=== PATIENT | male | born 1975 | race African-American/Black ===

== ENCOUNTER 2024-09-16 14:23 | Emergency (ER) | payer OTHER ==
--- NOTE | 2024-09-16 15:34 | RAD REPORT ---
EXAMINATION: XR RIGHT SHOUDLER CLINICAL INDICATION: Male, 49 years old. R shoulder inj RIGHT TECHNIQUE: Multiple views of the right shoulder were obtained. COMPARISON: No prior exam. FINDINGS: AC joint mild degenerative changes are present. There are 2 screws in the glenoid. Mild gle nohumeral arthritic changes. There is no fracture or dislocation.
--- NOTE | 2024-09-16 15:44 | EDPHYS ---
Physician Documentation [facility] Name: River Ball Jr Age: 49 yrs Sex: Male : 1975 Arrival Date: 09/16/2024 Time: 14:23 Bed DX3 Private MD: ED Physician Krystian Beebe HPI: 09/16 15:41 This 49 yrs old Black Male presents to ER via Ambulatory with complaints of Shoulder ec2 Pain - right. 15:41 Patient arrives today for right shoulder pain. Patient complaining of right shoulder ec2 pain after waking up several days ago. No falls injuries or trauma. Denies any neurodeficits to the area.. Historical: - Allergies: 15:01 No Known Allergies; iw - PMHx: 15:01 None; iw ROS: 15:41 Constitutional: as per hpi ec2 Exam: 15:41 Constitutional: GEN: NAD Head: atraumatic Eyes: EOMI Ears: External ears are ec2 normal. CV: regular rate LUNGS: no respiratory distress ABD: non-distended SKIN: no evidence of rashes MSK: Right shoulder with no evidence of trauma, good range of motion however pain elicited with range of motion, intact distal neurovascular status. Vital Signs: 15:00 BP 123 / 89; Pulse 53; Resp 16; Temp 97.9; Pulse Ox 98% on R/A; Weight 58.97 kg; Height iw 5 ft. 5 in. ; Pain 10/10; 15:00 Body Mass Index 21.63 (58.97 kg, 165.1 cm) iw 15:00 Pain Scale: Adult iw MDM: 15:01 Medical Screening Exam initiated ec2 15:42 Data reviewed: vital signs, nurses notes. ED course: Patient arrives today for right ec2 shoulder pain. Examination is revealing for MSK examination. Will obtain x-ray shows arthritis, will place patient in sling, outpatient pain medications have patient follow-up with repeated surgery. Patient discharged home. Turn precautions given.. 09/16 14:25 Order name: Shoulder Right (2 View) XRAY; Complete Time: 15:41 ec2 09/16 15:44 Order name: Sling; Complete Time: 16:51 ec2 Administered Medications: 17:07 Drug: Ketorolac IM 30 mg IM once Route: IM; Site: left deltoid; hb 17:07 Drug: Acetaminophen PO 1000 mg PO once Route: PO; hb 17:07 Drug: Methocarbamol PO 500 mg PO once Route: PO; hb Disposition Summary: 09/16/24 15:44 Discharge Ordered Notes: Location: Home ec2 Condition: Stable ec2 Diagnosis - Shoulder Arthritis ec2 Followup: ec2 - With: Private Physician - When: - Reason: Recheck today's complaints, Re-evaluation by your physician Discharge Instructions: - Discharge Summary Sheet ec2 - Arthritis, [id number] ec2 Forms: - Medication Reconciliation Form ec2 - Antibiotic Education ec2 - Prescription Opioid Use ec2 - Patient Portal Instructions ec2 - Leadership Thank You Letter ec2 Prescriptions: - methocarbamol 500 mg Oral tablet - take 1 tablet ORAL route 4 times per day; 20 tablet; Refills: 0, Product ec2 Selection Permitted Signatures: Dispatcher [employer] Ida Gómez RN RN Yazmin Jaquez RN RN Krystian Beebe MD MD ec2
--- NOTE | 2024-09-16 15:44 | ER ---
Nurse's Notes [facility] Name: River Ball Jr Age: 49 yrs Sex: Male : 1975 Arrival Date: 09/16/2024 Time: 14:23 Bed DX3 Private MD: Diagnosis: Shoulder Arthritis Presentation: 09/16 15:00 Chief complaint: Patient states: woke up with right shoulder pain 2 days ago , no iw injury, worse today. Coronavirus screen: At this time, the client does not indicate any symptoms associated with coronavirus-19. Ebola Screen: No symptoms or risks identified at this time. Initial Sepsis Screen: Does the patient meet any 2 criteria? No. Patient's initial sepsis screen is negative. Does the patient have a suspected source of infection? No. Patient's initial sepsis screen is negative. Risk Assessment: Do you want to hurt yourself or someone else? Patient reports no desire to harm self or others. Onset of symptoms was September 14, 2024. 15:00 Method Of Arrival: Ambulatory iw 15:00 Acuity: JUNIOR 4 iw Historical: - Allergies: 15:01 No Known Allergies; iw - PMHx: 15:01 None; iw Vital Signs: 15:00 BP 123 / 89; Pulse 53; Resp 16; Temp 97.9; Pulse Ox 98% on R/A; Weight 58.97 kg; Height iw 5 ft. 5 in. ; Pain 10/10; 15:00 Body Mass Index 21.63 (58.97 kg, 165.1 cm) iw 15:00 Pain Scale: Adult iw ED Course: 14:25 Patient arrived in ED. im 14:25 Krystian Beebe MD is Attending Physician. ec2 15:01 Triage completed. iw 15:11 Shoulder Right (2 View) XRAY In Process Unspecified. EDMS Administered Medications: 17:07 Drug: Ketorolac IM 30 mg IM once Route: IM; Site: left deltoid; hb 17:07 Drug: Acetaminophen PO 1000 mg PO once Route: PO; hb 17:07 Drug: Methocarbamol PO 500 mg PO once Route: PO; hb Outcome: 15:44 Discharge ordered by MD. ec2 17:08 Patient left the ED. hb Signatures: Dispatcher [employer] EDDC Ida Bryant RN RN Yazmin Jaquez RN RN Rosangela Francis Edwin, MD MD ec2
[2024-09-16] MEDS ORDERED: methocarbamoL 500 MG TAB ONE (16:53)
[2024-09-16] MEDS ORDERED: KETOROLAC 30 MG/ML INJ ONE (16:53)
[2024-09-16] MEDS ORDERED: ACETAMINOPHEN 500 MG TAB ONE (16:53)
[2024-09-16 17:16] VITALS: BP 123/89; TEMP 97.9; O2SAT 98
== END 2024-09-16 17:08 | disposition home or self-care (01) ==
LOC: ER 14:23
DX: M19.011 Primary osteoarthritis, right shoulder (principal)
CPT/HCPCS: 96372; 99284

== ENCOUNTER 2024-10-05 17:26 | Emergency (ER) | payer OTHER ==
--- OUTSIDE RECORDS SUMMARY | 2024-10-05 17:29 | XMS REPORT | Continuity of Care Document ---
Author Name Unknown Address [address] [facility] [address] [place] [address] [facility] [place] Address [address] [facility] [place] [address] Care Team Providers Care Billing Specialist Name Role Phone KINGSLEY MCCRARY Attending Clinician Unavailable Kingsley Lawton Attending Clinician [phone] Doctor Unassigned, Ina Attending Clinician U GWYN Gifford M.D. Attending Clinician Unavaila ble Payers Payer Name Policy Type Policy Number Effective Date Expirati on Date Source [facility] MEDICAID [id number] 2018 00:00:00 Problems Condition Name Condition Details Condition Category Status Onset Date Resolution Date Last Treatment Date Treating Clinician Comments Source Closed fracture of tibia Closed fracture of tibia Problem Active [facility] Closed fracture of shaft of femur, left, initial encounter Closed fracture of shaft of femur, left, initial encounter Problem Active [facility] Subluxatio n of shoulder joint, unspecifie d laterality , initial encounter Subluxatio n of shoulder joint, unspecifie d laterality , initial encounter Problem Active [facility] Closed fracture of glenoid cavity of scapula, right, initial encounter Closed fracture of glenoid cavity of scapula, right, initial encounter Problem Active [facility] Lymphadeno corrina Lymphadeno corrina Problem Active [facility] 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 Family History Family Member Diagnosis Comments Start Date Stop Date Sourc e Unknown Family Member Family history of malignant neoplasm Family History [facility] Social History Social Habit Start Date Stop Date Quantity Comments Source Sex Assigned At [facility] Exposure to SARS-CoV-2 (event) Not sure [facility] Tobacco use and exposure 2020-04-03 00:00:00 2020-04-03 00:00:00 Never used [facility] Smoking Status Start Date Stop Date Source Former smoker [facility] Unknown if ever smoked [facility] Current every day smoker 2020-04-03 00:00:00 [facility] Medications Ordered Medication Name Filled Medication Name Start Date Stop Date Current Medication? Ordering Clinician Indication Dosage Frequency Signature (SIG) Comments Components Source acetaminoph en with codeine (TYLENOL-CO DEINE #3 ORAL) 2019-06 18:46: 20 Yes Take by mouth. [facility] meloxicam 15 mg tablet 2019-06 00:00: 00 05-04 05:59 :00 No [id number] 15mg Take 1 tablet by mouth daily for [address] [facility] CeleBREX 200 MG Oral Capsule CeleBREX 200 MG Oral Capsule Yes [facility] [place] 10-325 MG Oral Tablet [place] 10-325 MG Oral Tablet Yes [facility] amLODIPine Besylate 10 MG Oral Tablet amLODIPine Besylate 10 MG Oral Tablet Yes [facility] No known medications No Un eugene [facility] Tylenol with Codeine #3 TABS Tylenol with Codeine #3 TABS Yes [facility] Aspirin 81 MG TABS Aspirin 81 MG TABS Yes [facility] Vital Signs Vital Name Observation Time Observation Value Comments S keeley Systolic blood pressure 2020-04-03 18:44:00 124 mm[Hg] [facility] Diastolic blood pressure 2020-04-03 18:44:00 82 mm[Hg] [facility] Heart rate 2020-04-03 18:44:00 82 /min [facility] Body height 2020-04-03 18:44:00 165.1 cm [facility] Height 2018-11-15 13:45:00 65 [in_us] [facility] Weight 2018-11-15 13:45:00 139 [lb_av] [facility] Body Mass Index Calculated 2018-11-15 13:45:00 23.13 kg/m2 [facility] BP Systolic 2018-11-01 11:13:00 146 mm[Hg] [facility] BP Diastolic 2018-11-01 11:13:00 90 mm[Hg] [facility] Height 2018-11-01 11:13:00 65 [in_us] [facility] Weight 2018-11-01 11:13:00 139 [lb_av] [facility] Body Mass Index Calculated 2018-11-01 11:13:00 23.13 kg/m2 [facility] Heart Rate 2018-11-01 11:13:00 56 /min [facility] Height 2018-10-06 17:05:00 65 [in_us] [facility] Weight 2018-10-06 17:05:00 139 [lb_av] [facility] Body Mass Index Calculated 2018-10-06 17:05:00 23.13 kg/m2 [facility] BP Systolic 2018-09-24 15:08:00 115 mm[Hg] [facility] BP Diastolic 2018-09-24 15:08:00 75 mm[Hg] [facility] Height 2018-09-24 15:08:00 65 [in_us] [facility] Weight 2018-09-24 15:08:00 139.3125 [lb_av] [facility] Body Mass Index Calculated 2018-09-24 15:08:00 23.18 kg/m2 [facility] Heart Rate 2018-09-24 15:08:00 50 /min [facility] Procedures Procedure Date / Time Performed Performing Clinicia n Source XR SHOULDER <2 VW LEFT 2020-04-03 19:10:54 Kingsley Mccrary [facility] REFERRAL- REQUEST/RESPONSE 2020-03-28 05:01:00 Doctor Unassigned, Ina [facility] US BX Lymph Node Needle Unilat US 2018-10-06 00:00:00 [facility] US Guided Needle BX/Asp/Inj/NeedLoc [id number] 2018-10-05 00:00:[address] [facility] [address] Neck soft tissue w contrast [id number] 2018-09-24 00:00:00 [facility] History of Leg Repair [facility] History of Shoulder Surgery [facility] History of Neck Surgery [facility] Encounters Start Date/Time End Date/Time Encounter Type Admission Type Attending Clinicians Care Facility Care Department Encounter ID Source 2022-11-28 09:49:14 2022-11-28 09:49:14 Outpatient [facility] [id number] Arias Cook 2020-05-17 12:00:00 2020-05-17 12:00:00 Outpatient [facility] [id number] [facility] 2020-04-03 14:10:54 2020-04-03 23:59:00 Hospital Encounter [facility] cora Delgado [id number] [facility] 2020-04-03 13:31:48 2020-04-03 13:46:48 Office Visit [facility] cora Delgado [id number] [facility] 2020-04-03 13:30:00 2020-04-03 13:30:00 Outpatient [facility] [id number] [facility] 2020-03-28 00:00:00 2020-03-28 00:00:00 Orders Only Doctor Unassigned, Ina [facility] [id number] [facility] 2018-11-15 13:15:00 2018-11-15 13:15:00 GWYN Biggs M.D. BYRD, MICHAEL, M.D. [facility] Otorhinolar yngology [facility] [id number] [place] [facility] 2018-11-01 10:30:00 2018-11-01 10:30:00 GWYN Biggs M.D. BYRD, MICHAEL, M.D. [facility] Otorhinolar yngology [facility] [id number] [place] [facility] 2018-10-13 13:23:00 2018-10-13 13:23:00 Outpatient [facility] [id number] [facility] 2018-10-05 13:15:00 2018-10-05 13:15:00 Appointmen t; GWYN MATTHEW M.D. BYRD, MICHAEL, M.D. [facility] [id number] [place] [facility] 2018-10-05 13:15:00 2018-10-05 13:15:00 Appointmen t; GWYN MATTHEW M.D. BYRD, MICHAEL, M.D. [facility] [id number] [place] [facility] 2018-09-24 14:30:00 2018-09-24 14:30:00 Appointmen t; GWYN MATTHEW M.D. BYRD, MICHAEL, M.D. [facility] Otorhinolar [facility] [id number] [place] [facility] 2018-09-24 14:30:00 2018-09-24 14:30:00 Appointmen t; GWYN MATTHEW M.D. BYRD, MICHAEL, M.D. [facility] [id number] [place] [facility] Results Test Description Test Time Test Comments Results Result Comments Source XR SHOULDER <2 VW LEFT 19:28:00 Left shoulder no sign of fracture or dislocation glenohumeral joint and subacromial space well maintained. [facility] VR Biopsy with ultrasound guidance [id number] 15:51:00 Patient Name: ELLEN CHAPAB: 1975; Age: 43 years MaleMR: [id number]: Biopsy with ultrasound guidance VR 10/13/2018 15:51 CDTPROCEDURE:Ultrasound guided biopsy of right neck lymph node.INDICATION: - neck mass right level IIb enlarged lymph node.COMPARISON: CT soft tissue neck 10/01/2018PROCEDURE:Ultras ound was used to evaluate the right upper neck prior noted lymph node onthe CT examination. Preliminary ultrasound demonstrates enlarged lymph node inthe upper right neck grossly measuring 1.8 cm. This node is adjacent to theright internal carotid artery and right internal jugular vein, as noted onprior CT examination.The palpable area showed subcutaneous hypoechoic lesion measuring approximately0.7 cm in the region of right parotid gland.The procedure, risks, benefits and alternatives were discussed. Informedconsent was obtained. Timeout was performed prior to the procedure.The skin overlying the right upper neck lymph node was sterilely prepped anddraped. 1% lidocaine was used for local anesthesia. Using ultrasound guidance,a 25-gauge needle was advanced into the lymph node and fine needle aspirationbiopsy was performed. A total of 5 biopsies were performed. Ultrasound imageswere obtained to document needle positions for permanent recording. The sampleswere immediately prepared for pathology evaluation. There were no evidentcomplications and the patient had no complaints. Pressure was applied at thepuncture site with adequate hemostasis. Final pathology results are pending.IMPRESSION:1. Technically successful biopsy of right level IIb enlarged lymph node usingultrasound guidance.2. Limited ultrasound interrogation of the palpable area showed subcutaneoushypoechoic lesion measuring approximately 0.7 cm in the region of right parotidgland. This lesion was not well visualized on prior CT examination. Dedicatedultrasound of the right parotid region can be performed for further evaluationif clinically indicated.SL: [id number]--Yxsy by: Victoriano Romanictated Date/time: 10/13/18 16:19Electronically Signed by: Victoriano Roman 10/14/1915:30FINAL REPORT [facility] CT Neck soft tissue w contrast [id number] 09:39:00 Clinical Indication: - R22.1 Localized swelling, mass and lump, neckComparison: NoneTechnique: CT of the neck is performed with a multidetector CT. Coronal andsagittal reconstructions were obtained.CONTRAST: 100 cc of IV Omnipaque contrast material was used for the exam.CT Radiation Dose DLP 266 mGy-cmFINDINGS:SOFT TISSUES: There are no neck masses noted. There are no fluid collections orabscess.LYMPH NODES: There is a right level 2B enlarged 2 cm lymph node at the levelthe marker. The nasopharyngeal adenoids and tonsillar pillar regions appearunremarkable.SALIVAR Y GLANDS: The submandibular and parotid glands are unremarkable.PARANASAL SINUSES AND AIRWAY: There is mucosal thickening in the roof of theleft and bilateral base of the maxillary sinus. The nasal septum is deviatedthe left. The remaining paranasal sinuses are normally pneumatized Thenasopharyngeal, oropharyngeal, supraglottic and infraglottic airway isunremarkable.SUPRAHYOID NECK: The oropharynx, oral cavity, parapharyngeal space, andretropharyngeal space are normal.INFRAHYOID NECK: The valleculae and piriform sinuses are normal. The larynx,hypopharynx, epiglottis and supraglottis are normal.ORBITS: The visualized orbits are unremarkable.VASCULAR STRUCTURES: The jugular veins and carotid vessels are unremarkable.OSSEOUS STRUCTURES: There are no fractures or dislocations. There are nolucencies at the bases of the mandibular teeth to suggest abscess. There are noradiopaque foreign bodies noted.THYROID GLANDS: The thyroid lobes are symmetric and there are no lesions.VISUALIZED LUNG APICES: There are no pulmonary masses or consolidation.If there is further concern for neck masses or malignancy, PET/CT imaging orMRI of the neck should be performed for complete assessment.IMPRESSION:At the level of the palpable mass/marker, there is a 2 cm enlarged, roundedlevel 2B lymph node.The adjacent parotid gland is normal.SL: KATHRIN--Read by: Faraz Reynoso MDDictated Date/time: 10/01/18 10:54Electronically Signed by: Faraz Reynoso MD 10/01/1910:02FINAL REPORT [facility]
--- NOTE | 2024-10-05 17:58 | EDPHYS ---
Physician Documentation [facility] Name: River Ball Jr Age: 49 yrs Sex: Male : 1975 Arrival Date: 10/05/2024 Time: 17:26 Bed 10 Private MD: ED Physician Kev Joyner HPI: 10/05 19:24 This 49 yrs old Black Male presents to ER via Ambulatory with complaints of Shoulder kb Pain. 19:24 Patient is a 49-year-old male who presents for right shoulder pain. States he was seen kb 2 weeks ago for this and given a shot and methocarbamol which improved the symptoms. States he was mowing yesterday and aggravated the shoulder causing the pain to come back last night and was worse today. Requesting a shot and methocarbamol. Historical: - Allergies: 18:08 No Known Allergies; iw - Home Meds: 18:08 None [Active]; iw - PMHx: 18:08 None; iw - Immunization history:: Adult Immunizations up to date. - Infectious Disease History:: Denies. - Social history:: Smoking status: unknown. ROS: 19:17 Constitutional: As per HPI kb Exam: 19:17 Constitutional: This is a well developed, well nourished patient who is awake, alert, kb and in no acute distress. Head/Face: Normocephalic, atraumatic. ENT: Moist Mucous membranes Cardiovascular: Regular rate Respiratory: Respirations even and unlabored. No increased work of breathing. Talking in full sentences Skin: Warm, dry with normal turgor. Normal color. Neuro: Awake and alert, GCS 15, oriented to person, place, time, and situation. 19:17 Musculoskeletal/extremity: Extremities: grossly normal except: noted in the anterior aspect of right shoulder: decreased ROM, pain, tenderness, ROM: limited active range of motion, limited passive range of motion, limited active range of motion due to pain, limited passive range of motion due to pain, Circulation is intact in all extremities. Sensation intact. Vital Signs: 18:07 BP 135 / 86; Pulse 59; Resp 16; Temp 98.1; Pulse Ox 100% on R/A; Weight 58.97 kg; iw Height 5 ft. 5 in. ; Pain 10/10; 19:12 BP 141 / 83; Pulse 87; Resp 17; Temp 98.1(O); Pulse Ox 96% on R/A; dd2 18:07 Body Mass Index 21.63 (58.97 kg, 165.1 cm) iw 18:07 Pain Scale: Adult iw MDM: 17:36 Medical Screening Exam initiated kb 17:53 Data reviewed: vital signs, nurses notes. Test considered but Not performed: X-ray: kb shoulder xray considered but pt does not want it done today. Pt states he had an xray 2 weeks ago and it was ok. States he didn't fall or injure it at all. Just wants a shot that he was given before. . 19:23 Differential diagnosis: Dislocation, arthritis, strain, tendinitis. Counseling: I had a kb detailed discussion with the patient and/or guardian regarding the historical points, exam findings, and any diagnostic results supporting the discharge/admit diagnosis, the need for outpatient follow up, a family practitioner, to return to the emergency department if symptoms worsen or persist or if there are any questions or concerns that arise at home. Administered Medications: 18:57 Drug: Ketorolac IM 30 mg IM once Route: IM; Site: left deltoid; ll1 19:14 Follow up: Response: No adverse reaction dd2 18:57 Drug: Methocarbamol PO 500 mg PO once Route: PO; ll1 19:14 Follow up: Response: No adverse reaction dd2 Disposition: 21:48 I was immediately available on-site in the Emergency Department for consultation in the ms3 care of the patient. Disposition Summary: 10/05/24 17:57 Discharge Ordered Notes: Location: Home Condition: Stable kb Diagnosis - Pain in right shoulder kb Followup: kb - With: Emergency Department - When: As needed - Reason: Worsening of condition Followup: kb - With: Private Physician - When: 2 - 3 days - Reason: Recheck today's complaints, Continuance of care, Re-evaluation by your physician Discharge Instructions: - Discharge Summary Sheet kb - Shoulder Pain, [id number] kb Forms: - Medication Reconciliation Form kb - Antibiotic Education kb - Prescription Opioid Use kb - Patient Portal Instructions kb - Leadership Thank You Letter kb Prescriptions: - methocarbamol 500 mg Oral tablet - take 1 tablet ORAL route 3 times per day As needed; 21 tablet; Refills: 0, kb Product Selection Permitted Signatures: Genia Marquez FNP-Yasmine RÍOS-Ida Heath, RN RN iw Jerman Adler RN RN ll1 Kev Joyner DO DO ms3 LIANG BRANCH RN dd2
[2024-10-05] MEDS ORDERED: methocarbamoL 500 MG TAB ONE (18:53)
[2024-10-05] MEDS ORDERED: KETOROLAC 30 MG/ML INJ ONE (18:54)
--- NOTE | 2024-10-05 19:14 | ER ---
Nurse's Notes [facility] Name: River Ball Jr Age: 49 yrs Sex: Male : 1975 Arrival Date: 10/05/2024 Time: 17:26 Bed 10 Private MD: Diagnosis: Pain in right shoulder Presentation: 10/05 18:07 Chief complaint: Patient states: right shoulder pain since last night. Coronavirus iw screen: At this time, the client does not indicate any symptoms associated with coronavirus-19. Ebola Screen: No symptoms or risks identified at this time. Initial Sepsis Screen: Does the patient meet any 2 criteria? No. Patient's initial sepsis screen is negative. Does the patient have a suspected source of infection? No. Patient's initial sepsis screen is negative. Risk Assessment: Do you want to hurt yourself or someone else? Patient reports no desire to harm self or others. 18:07 Method Of Arrival: Ambulatory iw 18:07 Acuity: JUNIOR 4 iw Historical: - Allergies: 18:08 No Known Allergies; iw - Home Meds: 18:08 None [Active]; iw - PMHx: 18:08 None; iw - Immunization history:: Adult Immunizations up to date. - Infectious Disease History:: Denies. - Social history:: Smoking status: unknown. Screenin:57 [facility] ED Fall Risk Assessment (Adult) History of falling in the last 3 months, ll1 including since admission No falls in past 3 months (0 pts) Confusion or Disorientation No (0 pts) Intoxicated or Sedated No (0 pts) Impaired Gait No (0 pts) Mobility Assist Device Used No (0 pt) Altered Elimination No (0 pt) Score/Fall Risk Level 0 - 2 = Low Risk Maintained a safe environment, Hourly rounding (assess needs \T\ fall precautionary measures) done. Abuse screen: Denies threats or abuse. Nutritional screening: No deficits noted. Tuberculosis screening: No symptoms or risk factors identified. Assessment: 18:57 General: Appears uncomfortable, Behavior is calm, cooperative, appropriate for age. ll1 Pain: Complains of pain in R shoulder Quality of pain is described as aching, throbbing. Musculoskeletal: Circulation, motion, and sensation intact. Capillary refill < 3 seconds, in right fingers. Reports pain in R shoulder. Vital Signs: 18:07 BP 135 / 86; Pulse 59; Resp 16; Temp 98.1; Pulse Ox 100% on R/A; Weight 58.97 kg; iw Height 5 ft. 5 in. ; Pain 10/10; 19:12 BP 141 / 83; Pulse 87; Resp 17; Temp 98.1(O); Pulse Ox 96% on R/A; dd2 18:07 Body Mass Index 21.63 (58.97 kg, 165.1 cm) iw 18:07 Pain Scale: Adult iw ED Course: 17:30 Patient arrived in ED. al6 17:36 [facility]C [facility] kb 17:36 Kev Joyner DO is Attending Physician. kb 18:08 Triage completed. iw 18:48 Arm band placed on Patient placed in an exam room, on a stretcher. ll1 18:57 Jerman Adler, WIL is Primary Nurse. ll1 18:58 Patient has correct armband on for positive identification. Bed in low position. ll1 Provided Education on: ER procedures and process. Cardiac monitoring not applicable on this patient. 19:12 No provider procedures requiring assistance completed. Patient did not have IV access dd2 during this emergency room visit. Administered Medications: 18:57 Drug: Ketorolac IM 30 mg IM once Route: IM; Site: left deltoid; ll1 19:14 Follow up: Response: No adverse reaction dd2 18:57 Drug: Methocarbamol PO 500 mg PO once Route: PO; ll1 19:14 Follow up: Response: No adverse reaction dd2 Medication: 18:58 VIS not applicable for this client. ll1 Outcome: 17:57 Discharge ordered by . joshua 19:12 Discharged to home ambulatory, dd2 19:12 Condition: stable 19:12 Discharge instructions given to patient, Instructed on discharge instructions, follow up and referral plans. medication usage, Demonstrated understanding of instructions, follow-up care, medications, Prescriptions given X 1, 19:13 Patient left the ED. dd2 Signatures: Genia Marquez FNP-C FNP-Ida Heath RN RN iw Jerman Adler RN RN ll1 LIANG BRANCH RN RN dd2 Teresa Bauer al6
[2024-10-05 19:19] VITALS: TEMP 98.1
[2024-10-05 19:20] VITALS: BP 141/83; O2SAT 96
== END 2024-10-05 19:13 | disposition home or self-care (01) ==
LOC: ER 17:26
DX: M25.511 Pain in right shoulder (principal)

== ENCOUNTER 2024-10-09 16:20 | Emergency (ER) | payer OTHER ==
--- OUTSIDE RECORDS SUMMARY | 2024-10-09 16:23 | XMS REPORT | Continuity of Care Document ---
Author Name Unknown Address [address] [facility] [address] [place] [address] [facility] Address [address] [facility] [place] [address] Care Team Providers Care Space Control Agent Name Role Phone KINGSLEY MCCRARY Attending Clinician Unavailable Kingsley Lawton Attending Clinician [phone] Doctor Unassigned, [place] Attending Clinician U GWYN Gifford M.D. 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 Problem Resolve d [facility] History of lymphoma History of lymphoma Problem Active [facility] Neck mass Neck mass Problem Active [facility] Nasal septal perforatio n Nasal septal perforatio n Problem Active [facility] Closed fracture of tibia Closed fracture of [...] Lymphadeno corrina Problem Active [facility] Allergies, Adverse Reactions, Alerts Allergy Name Allergy Type Status Severity Reaction(s) Onset Date Inactive Date Treating Clinician Comments Source NO KNOWN ALLERGIE S Drug Class Active [facility] Family History Family Member Diagnosis Comments Start Date Stop Date Sourc e Unknown Family Member Family history of malignant neoplasm Family History [facility] Social History Social Habit Start Date Stop Date Quantity Comments Source Sex Assigned [facility] Exposure to SARS-CoV-2 (event) Not sure [facility] Tobacco use and exposure 2020-04-03 00:00:00 2020-04-03 00:00:00 Never used [facility] Smoking Status Start Date Stop Date Source Former smoker [facility] Unknown if ever smoked [facility] Current every day smoker 2020-04-03 00:00:00 [facility] Medications Ordered Medication Name Filled Medication Name Start Date Stop Date Current Medication? Ordering Clinician Indication Dosage Frequency Signature (SIG) Comments Components Source acetaminoph en with codeine (TYLENOL-CO DEINE #3 ORAL) 2019-06 18:46: 20 Yes Take by mouth. [facility] meloxicam 15 mg tablet 2019-06 00:00: 00 05-04 05:59 :00 No [id number] 15mg Take 1 tablet by mouth daily for 30 days. [facility] Tylenol with Codeine #3 TABS Tylenol with Codeine #3 TABS Yes [facility] No known medications No Un eugene [facility] Aspirin 81 MG TABS Aspirin 81 MG TABS Yes [facility] CeleBREX 200 MG Oral Capsule CeleBREX 200 MG Oral Capsule Yes [facility] [place] 10-325 MG Oral Tablet [place] 10-325 MG Oral Tablet Yes [facility] amLODIPine Besylate 10 MG Oral Tablet amLODIPine Besylate 10 MG Oral Tablet Yes [facility] Vital Signs Vital Name Observation Time Observation Value Comments S ourchiqui Systolic blood pressure 2020-04-03 18:44:00 124 mm[Hg] [facility] Diastolic blood pressure 2020-04-03 18:44:00 82 mm[Hg] [facility] Heart rate 2020-04-03 18:44:00 82 /min [facility] Body height 2020-04-03 18:44:00 165.1 cm [facility] Height 2018-11-15 13:45:00 65 [in_us] UT [...] <2 VW LEFT 2020-04-03 19:10:54 Kingsley Mccrary [facility] REFERRAL- REQUEST/RESPONSE 2020-03-28 05:01:00 Doctor Unassigned, [place] [facility] US BX Lymph Node Needle Unilat US 2018-10-06 00:00:00 [facility] US Guided Needle BX/Asp/Inj/NeedLoc [id number] 2018-10-05 00:00:[address] [facility] [address] Neck soft tissue w contrast [id number] 2018-09-24 00:00:00 [facility] History of Leg Repair [facility] of [facility]er [facility] History of Neck [facility] Encounters Start Date/Time End Date/Time Encounter Type Admission Type Attending Clinicians Care Facility Care Department Encounter ID Source 2022-11-28 09:49:14 2022-11-28 09:49:14 Outpatient [facility] [id number] Arias Cook 2020-05-17 12:00:00 2020-05-17 12:00:00 [facility]patient [facility] [id number] [facility] 2020-04-03 14:10:54 2020-04-03 23:59:00 Hospital Encounter [facility] cora Delgado [id number] [facility] 2020-04-03 13:31:48 2020-04-03 13:46:48 Office Visit [facility] cora Delgado [id number] [facility] 2020-04-03 13:30:00 2020-04-03 13:30:00 Outpatient KINGSLEY [facility] [id number] [facility] 2020-03-28 00:00:00 2020-03-28 00:00:00 Orders Only Doctor Unassigned, [place] [facility] [id number] [facility] 2018-11-15 13:15:00 2018-11-15 13:15:00 GWYN Biggs M.D. BYRD, MICHAEL, M.D. [facility] [id number] [facility] 2018-11-01 10:30:00 2018-11-01 10:30:00 GWYN Biggs M.D. BYRD, MICHAEL, M.D. R[facility] [id number] [facility] 2018-10-13 13:23:00 2018-10-13 13:23:00 Outpatient [facility] [id number] [facility] 2018-10-05 13:15:00 2018-10-05 13:15:00 Appointmen t; GWYN MATTHEW M.D. BYRD, MICHAEL, M.D. [facility] [id number] [facility] 2018-10-05 13:15:00 2018-10-05 13:15:00 Appointmen t; GWYN MATTHEW M.D. BYRD, MICHAEL, M.D. [facility] [id number] [facility] 2018-09-24 14:30:00 2018-09-24 14:30:00 Appointmen t; GWYN MATTHEW M.D. BYRD, MICHAEL, M.D. R[facility] [id number] [facility] 2018-09-24 14:30:00 2018-09-24 14:30:00 Appointmen t; GWYN MATTHEW M.D. BYRD, MICHAEL, M.D. [facility] [id number] [facility] Results Test Description Test Time Test Comments Results Result Comments Source XR SHOULDER <2 VW LEFT 19:28:00 Left shoulder no sign of fracture or dislocation glenohumeral joint and subacromial space well maintained. [facility] VR Biopsy with ultrasound guidance [id number] 15:51:00 Patient Name: ELLEN CHAPAB: 1975; Age: 43 years MaleMR: [id number]: Biopsy with ultrasound guidance VR 10/13/2018 15:51 [...] be performed for further evaluationif clinically indicated.SL: [id number]--Dzrq by: Victoriano Romanictated Date/time: 10/13/18 16:19Electronically Signed by: Victoriano Roman 10/14/1915:30FINAL REPORT [facility] CT Neck soft tissue w contrast [id number] 09:39:00 Clinical Indication: - R22.1 Localized swelling, [...] Signed by: Faraz Reynoso MD 10/01/1910:02FINAL REPORT [facility]
[2024-10-09] MEDS ORDERED: NA CHLORIDE 0.9% 1,000 ML ONE ×2 (16:50→18:55)
[2024-10-09 17:00] LABS: Absolute Eosinophils 0.3 K/uL (0-0.5); Absolute Lymphocytes (CBC) 2.5 K/uL (0.7-4.9); Absolute Monocytes 0.7 K/uL (0.1-1.3); Absolute Neutrophil 2.8 K/uL (1.8-8.0); Basophils % 0.7 % (0-1.3); Eosinophils % 4.6 % (0-4.4); Hematocrit 42.6 % (39.6-49.0); Hemoglobin 14.8 g/dL (13.6-17.9); Lymphocytes % 39.3 % (15.3-44.8); MCH 33.2 pg (27.0-35.0); MCHC 34.6 g/dL (32.0-36.0); MPV 7.5 fL (7.6-11.3); Monocytes % 11.2 % (3.3-12.3); Neutrophils % 44.2 % (41.7-73.7); Platelets 263 thou/uL (152-406); RBC Red Blood Cell Count 4.44 M/uL (4.33-5.43); Red Cell Distribution Width 14.1 % (12.1-15.2)
[2024-10-09 17:10] LABS: PT Prothrombin Time 12.3 SECONDS (10-13.0); PTT, Activated Partial Thromb 26.1 SECONDS (27.2-37.4); Protime INR 1.08
[2024-10-09 17:21] LABS: Albumin 3.4 g/dL (3.4-5.0); Albumin/Globulin Ratio 0.7 (1.1-1.8); Alkaline Phosphatase 84 U/L (45-117); Anion Gap 7.5 mEq/L (5.0-15.0); BUN Blood Urea Nitrogen 13 mg/dL (7-18); Bicarbonate 25 mEq/L (21-32); Bilirubin Total 0.3 mg/dL (0.2-1.0); Globulin 4.7 g/dL (2.3-3.5); Glomerular Filtration Rate 74 ml/min (=/>90); Glucose Level 100 mg/dL (74-106); Magnesium 2.2 mg/dL (1.6-2.4); Potassium 4.5 mEq/L (3.5-5.1); Protein, Total 8.1 g/dL (6.4-8.2); Sodium Level 133 mEq/L (136-145)
[2024-10-09 17:23] LABS: ALT/SGPT < 14 U/L (16-61); AST/SGOT < 10 U/L (15-37); Bilirubin Direct < 0.2 mg/dL (0-0.2); Bilirubin Indirect, Calculated 0.1 mg/dL (0.2-0.8); Troponin High Sensitivity < 3.0 pg/mL (<58.9)
--- NOTE | 2024-10-09 17:43 | RAD REPORT ---
EXAM: CT Head Brain Wo Cont HISTORY: SYNCOPE COMPARISON: 08/20/2014 TECHNIQUE: Multiple contiguous axial images were obtained for a CT of the brain without contrast. Sag ittal and coronal reformats were performed. One or more of the following dose reduction techniques were used: Automated exposure control, adjus tment of the mA and kV according to patient size, and iterative reconstruction. Unless otherwise specified, incidental findings do not require dedicated imaging follow-up. FINDINGS: No evidence of hydrocephalus, intracranial hemorrhage, or extra-axial fluid collection. Encephalomalacia in the parasagittal high left frontal lobe, may relate to sequelae of remote ischemi a or trauma. The brain is otherwise normal in morphology. The calvarium is intact. The visualized paranasal sinuses and mastoid air cells are essentially clear . IMPRESSION: No evidence of acute intracranial abnormality. Chronic appearing focus of encephalomalacia in the high left frontal lobe.
--- NOTE | 2024-10-09 18:09 | RAD REPORT ---
EXAMINATION: ONE VIEW CHEST XR CLINICAL INDICATION: Male, 49 years old.,syncope TECHNIQUE: Frontal chest projection is submitted. Examination is limited by patient positioning and t echnique. COMPARISON: 11/10/2018 FINDINGS: The lungs are well inflated and clear. No pneumothorax or sizable effusion. The heart is normal in s ize. Mediastinal contours are unremarkable. IMPRESSION: No acute intrathoracic abnormalities.
[2024-10-09 18:23] LABS: Specific Gravity 1.015 (1.005-1.030); Sqamous Epithelial <5 /HPF (None Seen); Urine Bacteria <20 /HPF (<20); Urine Bilirubin NEGATIVE (Negative); Urine Blood Negative (Negative); Urine Clarity Turbid (Clear); Urine Color Light-Yellow (Yellow); Urine Culture Reflex Order NOT NEEDED; Urine Glucose NEGATIVE (Negative); Urine Ketones NEGATIVE (Negative); Urine Microscopic Reflex YN ORDER UMIC; Urine Mucus 2+ /HPF (None Seen); Urine Nitrite NEGATIVE (Negative); Urine Protein NEGATIVE (Negative); Urine RBC <5 /HPF (None Seen); Urine Urobilinogen Normal (Normal); Urine WBC <5 /HPF (<5); Urine WBC Clump Rare /HPF (None Seen); Urine Yeast (Budding) Trace /HPF (None Seen); Urine pH 5.5 (5.0-7.0)
[2024-10-09 18:36] LABS: Barbiturates NEGATIVE (NEGATIVE); Benzodiazepines NEGATIVE (NEGATIVE); Cocaine POSITIVE (NEGATIVE); METHAMPHETAM NEGATIVE (NEGATIVE); Methadone NEGATIVE (NEGATIVE); Opiates NEGATIVE (NEGATIVE); Phencyclidine NEGATIVE (NEGATIVE); THC Cannibis POSITIVE (NEGATIVE)
--- NOTE | 2024-10-09 19:18 | EDPHYS ---
Physician Documentation [facility] Name: River Ball Jr Age: 49 yrs Sex: Male : 1975 Arrival Date: 10/09/2024 Time: 16:20 Bed 16 Private MD: ED Physician Farshad Crockett HPI: 10/09 18:59 This 49 yrs old Black Male presents to ER via Ambulatory with complaints of Syncope. rn 18:59 The patient has experienced syncope. Onset: The symptoms/episode began/occurred just rn prior to arrival. Duration: This was a single episode. Associated injury: The patient did not suffer any apparent associated injury. Current symptoms: Currently, the patient is not experiencing any symptoms. The patient has not experienced similar symptoms in the past. The patient has not recently seen a physician. Patient had 1-2 syncopal episodes today, was concurrent episode. Patient reports when outside and passed out. No injuries or head injury. Tried to stand up after and almost passed out again. Again no trauma. Patient reports heavy alcohol intake last night, recent marijuana, not eating and drinking like he should and got lightheaded.. Historical: - Allergies: 17:53 No Known Allergies; me1 - PMHx: 17:53 None; me1 - PSHx: 17:53 None; me1 - Immunization history:: Adult Immunizations unknown. - Infectious Disease History:: Denies. - Family history:: not pertinent. - Social history:: Smoking status: Patient reports the use of cigarette tobacco products, denies chronic smoking, but will smoke occasionally, Patient uses street drugs, marijuana. - Hospitalizations: : No recent hospitalization is reported. ROS: 18:59 Constitutional: Negative for fever, chills, and weight loss, Neck: Negative for injury, rn pain, and swelling, Cardiovascular: Negative for chest pain, palpitations, and edema, Respiratory: Negative for shortness of breath, cough, wheezing, and pleuritic chest pain, Abdomen/GI: Negative for abdominal pain, nausea, vomiting, diarrhea, and constipation, MS/Extremity: Negative for injury and deformity, Skin: Negative for injury, rash, and discoloration, Neuro: Negative for headache, weakness, numbness, tingling, and seizure, Exam: 17:17 ECG was reviewed by the Attending Physician. rn 18:59 Constitutional: This is a well developed, well nourished patient who is awake, alert, rn and in no acute distress. Head/Face: Normocephalic, atraumatic. ENT: Dry mucous membranes Cardiovascular: Bradycardic, regular Respiratory: No increased work of breathing, no retractions or nasal flaring. Abdomen/GI: Soft, non-tender MS/ Extremity: Pulses equal, no cyanosis. Neurovascular intact. Full, normal range of motion. Equal circumference. Neuro: Awake and alert, GCS 15, oriented to person, place, time, and situation. Cranial nerves II-XII grossly intact. Motor strength 5/5 in all extremities. Sensory grossly intact. Cerebellar exam normal. Vital Signs: 16:38 BP 105 / 77; Pulse 63; Resp 18 S; Temp 98.7(O); Pulse Ox 99% on R/A; Weight 60.78 kg aa5 (M); 17:00 BP 106 / 81; Pulse 57; Resp 15; Pulse Ox 96% ; me1 18:00 BP 111 / 80; Pulse 58; Resp 17; Pulse Ox 100% ; me1 19:00 BP 117 / 81; Pulse 56; Resp 16; Pulse Ox 96% ; me1 20:06 BP 118 / 79; Pulse 58; Resp 15; Temp 98.2; Pulse Ox 100% ; me1 MDM: 16:34 Medical Screening Exam initiated rn 19:14 Differential Diagnosis: cardiac arrhythmia, drug effect, idiopathic syncope, vasovagal rn episode, Dehydration. Data reviewed: vital signs, nurses notes, lab test result(s), EKG, radiologic studies, CT scan, plain films, and as a result, I will discharge patient. Counseling: I had a detailed discussion with the patient and/or guardian regarding the historical points, exam findings, and any diagnostic results supporting the discharge/admit diagnosis, lab results, radiology results, the need for outpatient follow up, to return to the emergency department if symptoms worsen or persist or if there are any questions or concerns that arise at home. Special discussion: I discussed with the patient/guardian in detail that at this point there is no indication for admission to the hospital. It is understood, however, that if the symptoms persist or worsen the patient needs to return immediately for re-evaluation. Based on the history and exam findings, there is no indication for further emergent testing or inpatient evaluation. I discussed with the patient/guardian the need to see the primary care provider for further evaluation of the symptoms. ED course: Recommend cessation of drug use and alcohol. No acute findings and workup. CT head no acute findings. Troponin negative. Patient back to baseline and feels much better, is joking and requesting to leave. I have personally reviewed all of the results, including but not limited to blood tests and imaging deemed necessary to safely discharge this patient at this time. All results given to and printed out for patient. I personally went over all the results with the patient and answered all questions. Patient will follow-up with PCP and or specialist as discussed. Return precautions given and understood.. 10/09 16:43 Order name: Basic Metabolic Panel; Complete Time: 18:26 rn 10/09 16:43 Order name: CBC with Diff; Complete Time: 17:06 rn 10/09 16:43 Order name: Hepatic Function; Complete Time: 18:26 10/09 16:43 Order name: Magnesium; Complete Time: 18:10/09 16:43 Order name: Protime (+inr); Complete Time: 18:10/09 16:43 Order name: Ptt, Activated; Complete Time: 18:10/09 16:43 Order name: Troponin High Sensitivity; Complete Time: 18:26 rn 10/09 16:43 Order name: UDS; Complete Time: 18:56 rn 10/09 16:43 Order name: Urinalysis w/ reflexes; Complete Time: 18:26 10/09 16:43 Order name: CT Head Brain wo Cont; Complete Time: 18:10/09 16:43 Order name: Chest Single View XRAY; Complete Time: 18:10/09 16:43 Order name: Cardiac monitoring; Complete Time: 17:10/09 16:43 Order name: EKG - Nurse/Tech; Complete Time: 17:10/09 16:43 Order name: IV Saline Lock; Complete Time: 16:54 10/09 16:43 Order name: Labs collected and sent; Complete Time: 16:54 10/09 16:43 Order name: NPO; Complete Time: 16:54 10/09 16:43 Order name: O2 Per Protocol; Complete Time: 16:54 10/09 16:43 Order name: O2 Sat Monitoring; Complete Time: 16:54 rn 10/09 16:43 Order name: Orthostatics; Complete Time: 16:54 rn EC:17 Rate is 55 beats/min. Rhythm is regular. QRS [place] is Normal. NV interval is normal. QRS rn interval is normal. QT interval is normal. No Q waves. T waves are Normal. No ST changes noted. Clinical impression: Sinus bradycardia. Interpreted by me. Reviewed by me. Administered Medications: 17:07 Drug: NS 0.9% IV 1000 ml IV at 1000 ml once; to be given as a bolus over 60 minutes me1 Route: IV; Rate: 1000 ml; Site: left antecubital; 18:53 Follow up: Response: No adverse reaction; IV Status: Completed infusion; IV Intake: me1 1000ml 19:00 Drug: NS 0.9% IV 1000 ml IV at 1000 ml once; to be given as a bolus over 60 minutes me1 Route: IV; Rate: 1000 ml; Site: left antecubital; 20:05 Follow up: Response: No adverse reaction; IV Status: Completed infusion; IV Intake: me1 1000ml Disposition Summary: 10/09/24 19:17 Discharge Ordered Notes: Location: Home rn Problem: new rn Symptoms: have improved rn Condition: Stable rn Diagnosis - Syncope rn - Dehydration rn Followup: rn - With: Private Physician - When: As needed - Reason: Recheck today's complaints, Re-evaluation by your physician Discharge Instructions: - Discharge Summary Sheet rn - Dehydration, Adult rn - Syncope rn Forms: - Medication Reconciliation Form rn - Antibiotic varnish mixer - Prescription Opioid Use rn - Patient Portal Instructions rn - Leadership Thank You Letter rn Signatures: Dispatcher [employer] Farshad Gant MD MD rn Eddleman, Michelle, RN RN me1 Corrections: (The following items were deleted from the chart) 16:44 16:44 Head Brain Wo Cont+CT.RAD.BRZ ordered. [facility] 19:17 19:17 Adverse effect of other drugs, medicaments and biological substances, initial rn encounter rn
--- NOTE | 2024-10-09 19:18 | ER ---
Nurse's Notes [facility] Name: River Ball Jr Age: 49 yrs Sex: Male : 1975 Arrival Date: 10/09/2024 Time: 16:20 Bed 16 Private MD: Diagnosis: Syncope;Dehydration Presentation: 10/09 16:38 Chief complaint: Pt's family states "He passed out about 4 times today". Pt reports he me1 drank ETOH yesterday and "smoked weed today". 16:38 Coronavirus screen: At this time, the client does not indicate any symptoms associated aa5 with coronavirus-19. Ebola Screen: Patient denies travel to an Ebola-affected area in the 21 days before illness onset. Initial Sepsis Screen: Does the patient meet any 2 criteria? No. Patient's initial sepsis screen is negative. Does the patient have a suspected source of infection? No. Patient's initial sepsis screen is negative. Risk Assessment: Do you want to hurt yourself or someone else? Patient reports no desire to harm self or others. Onset of symptoms was October 09, 2024. 16:38 Acuity: JUNIOR 2 aa5 16:38 Method Of Arrival: Ambulatory aa5 Historical: - Allergies: 17:53 No Known Allergies; me1 - PMHx: 17:53 None; me1 - PSHx: 17:53 None; me1 - Immunization history:: Adult Immunizations unknown. - Infectious Disease History:: Denies. - Family history:: not pertinent. - Social history:: Smoking status: Patient reports the use of cigarette tobacco products, denies chronic smoking, but will smoke occasionally, Patient uses street drugs, marijuana. - Hospitalizations: : No recent hospitalization is reported. Screenin:53 [facility] ED Fall Risk Assessment (Adult) History of falling in the last 3 months, me1 including since admission No falls in past 3 months (0 pts) Confusion or Disorientation No (0 pts) Intoxicated or Sedated No (0 pts) Impaired Gait No (0 pts) Mobility Assist Device Used No (0 pt) Altered Elimination No (0 pt) Score/Fall Risk Level 0 - 2 = Low Risk Maintained a safe environment, Provided non-skid footwear, Hourly rounding (assess needs \\T\\ fall precautionary measures) done. Abuse screen: Denies threats or abuse. Nutritional screening: No deficits noted. Tuberculosis screening: No symptoms or risk factors identified. Assessment: 16:40 General: Appears in no apparent distress. Behavior is cooperative, appropriate for age, me1 flat, quiet, Reports Pt's family states "He passed out about 4 times today". Pt reports he drank ETOH yesterday and "smoked weed today". Pain: Denies pain. Neuro: Level of Consciousness is awake, alert, obeys commands, Oriented to person, place, time, situation, Appropriate for age Reports a syncopal episode. Cardiovascular: Patient's skin is warm and dry. Rhythm is sinus bradycardia. Respiratory: Airway is patent Respiratory effort is even, unlabored, Respiratory pattern is regular, symmetrical. GI: No signs and/or symptoms were reported involving the gastrointestinal system. : No signs and/or symptoms were reported regarding the genitourinary system. EENT: No signs and/or symptoms were reported regarding the EENT system. Derm: Skin is intact, is healthy with good turgor, Skin is pink, warm \\T\\ dry. Musculoskeletal: No signs and/or symptoms reported regarding the musculoskeletal system. Vital Signs: 16:38 BP 105 / 77; Pulse 63; Resp 18 S; Temp 98.7(O); Pulse Ox 99% on R/A; Weight 60.78 kg aa5 (M); 17:00 BP 106 / 81; Pulse 57; Resp 15; Pulse Ox 96% ; me1 18:00 BP 111 / 80; Pulse 58; Resp 17; Pulse Ox 100% ; me1 19:00 BP 117 / 81; Pulse 56; Resp 16; Pulse Ox 96% ; me1 20:06 BP 118 / 79; Pulse 58; Resp 15; Temp 98.2; Pulse Ox 100% ; me1 ED Course: 16:24 Patient arrived in ED. cj3 16:34 Farshad Crockett MD is Attending Physician. rn 16:38 Arm band placed on Patient placed in an exam room, on a stretcher. aa5 16:43 Triage completed. aa5 16:45 Leonor Hubbard, WIL is Primary Nurse. me1 16:53 Initial lab(s) drawn, by oh, sent to lab. Inserted saline lock: 20 gauge in left me1 antecubital area, using aseptic technique. 16:54 Basic Metabolic Panel Sent. me1 16:54 CBC with Diff Sent. me1 16:54 Hepatic Function Sent. me1 16:54 Magnesium Sent. me1 16:54 Protime (+inr) Sent. me1 16:54 Ptt, Activated Sent. me1 16:54 Troponin High Sensitivity Sent. me1 17:07 EKG done, by ED staff, reviewed by Farshad Crockett MD. me1 17:09 Chest Single View XRAY In Process Unspecified. EDMS 17:34 CT Head Brain wo Cont In Process Unspecified. EDMS 17:53 Patient has correct armband on for positive identification. Call light in reach. Side me1 rails up X2. Provided Education on: POC. Verbalized understanding.. Client placed on continuous cardiac and pulse oximetry monitoring. NIBP monitoring applied. drug inspector on. Pulse ox on. NIBP on. 17:53 No provider procedures requiring assistance completed. me1 18:03 Urine collected: clean catch specimen, cloudy, tea colored. me1 20:07 IV discontinued, intact, bleeding controlled, No redness/swelling at site. Pressure me1 dressing applied. Administered Medications: 17:07 Drug: NS 0.9% IV 1000 ml IV at 1000 ml once; to be given as a bolus over 60 minutes me1 Route: IV; Rate: 1000 ml; Site: left antecubital; 18:53 Follow up: Response: No adverse reaction; IV Status: Completed infusion; IV Intake: me1 1000ml 19:00 Drug: NS 0.9% IV 1000 ml IV at 1000 ml once; to be given as a bolus over 60 minutes me1 Route: IV; Rate: 1000 ml; Site: left antecubital; 20:05 Follow up: Response: No adverse reaction; IV Status: Completed infusion; IV Intake: me1 1000ml Medication: 17:53 VIS not applicable for this client. me1 Intake: 18:53 IV: 1000ml; Total: 1000ml. me1 20:05 IV: 1000ml; Total: 2000ml. me1 Outcome: 19:17 Discharge ordered by rn 20:07 Discharged to home ambulatory, with family, me1 20:07 Condition: stable 20:07 Discharge instructions given to patient, significant other, Instructed on discharge instructions, follow up and referral plans. Demonstrated understanding of instructions, follow-up care, 20:07 Patient left the ED. me1 Signatures: Dispatcher [employer] EDMS Crockett, Farshad, MD MD rn Landis, Samantha, RN RN aa5 Leonor Hubbard RN RN me1 Ashley Valencia 3 Corrections: (The following items were deleted from the chart) 17:52 16:38 Chief complaint: Pt's family states "He passed out about 4 times today". Pt me1 reports he drank ETOH yesterday and "smoked weed today" aa5
[2024-10-09 20:21] VITALS: BP 118/79; TEMP 98.2; O2SAT 100
--- NOTE | 2024-10-10 10:48 | EKG ---
Test Date: 2024-10-09 Test Time: 17:02:29 Spiral Machine Operator: MEASUREMENT RESULTS: Intervals: Rate: 55 AK: 138 QRSD: 98 QT: 414 QTc: 396 [place]: P: 68 AK: 138 QRS: 41 T: 58 INTERPRETIVE STATEMENTS: Sinus bradycardia Otherwise normal ECG Compared to ECG 08/20/2014 13:25:37 Sinus rhythm no longer present T-wave abnormality no longer present Electronically Signed On 10-10-24 10:47:05 CDT by Chilo Josue
== END 2024-10-09 20:07 | disposition home or self-care (01) ==
LOC: ER 16:20
DX: R55 Syncope and collapse (principal); E86.0 Dehydration; F17.210 Nicotine dependence, cigarettes, uncomplicated
CPT/HCPCS: 96361; 93005; 85025; 81001; 80048; 36415; 83735; 85610; 80076; 85730; 84484; 80307; 70450; 71045; 96360; 99285; J7030 ×2